=== PATIENT | female | born 1985 | race Caucasian/White ===

== ENCOUNTER 2017-01-04 12:07 | Emergency (ER) | payer OTHER ==
[~2017-01-04] VITALS: Ht 160 cm; Wt 86.2 kg
[~2017-01-04 12:07] MED LIST: AMOXICILLIN 50500 MG PO; AUGMENTIN 875 M1 TAB PO; CLARITIN 10MG T10 MG PO; FLONASE ALLERG9.9 ML NS; HYDROMET PO; MEDROL 4MG. DOSE4 MG PO; TESSALON PERLE100 M1 PO; TRI LINYAH PO; ZITHROMAX Z-PA250 M2 PO
--- OUTSIDE RECORDS SUMMARY | 2017-01-04 12:15 | External Medical Summary Rpt | CCD ---
Demographics Preferred Language Congolese Marital Status Unknown Judaism Affiliation Unknown Race Unknown Ethnic Group Unknown Author Author , CADE MOHAMUD Address Unknown Phone Immunization No patient found.
--- OUTSIDE RECORDS SUMMARY | 2017-01-04 12:15 | External Medical Summary Rpt | CCD ---
Author Author RIKKI Address Unknown Phone Purpose Continuity of Care Document - through 2016
--- OUTSIDE RECORDS SUMMARY | 2017-01-04 12:15 | External Medical Summary Rpt | CCD ---
Demographics Preferred Language Iranian Marital Status Unknown Voodoo Affiliation Unknown Race Unknown Ethnic Group Unknown Author Author , CADE MOHAMUD Address Unknown Phone Immunization No patient found.
--- OUTSIDE RECORDS SUMMARY | 2017-01-04 12:15 | External Medical Summary Rpt ---
Author Author CADE Tristan, CADE [employer] Organization [employer] Address Unknown Phone Unavailable
--- NOTE | 2017-01-04 12:32 | Urgent Treatment Center Report ---
History of Present Issue Date/Time Seen by Provider 01/04/17 1220 Visit Reason Pt arrived:Walked Presenting Problem:COUGH, CONGESTION, EAR ACHE X3 DAYS Location if Accident: Onset of symptoms date/time:/ or onset unknown for:MEDICAL HX UNKNOWN Have you (or family members/close friends) recently traveled outside the [place]? N If Yes, where/when: Have you had exposure to infectious disease within the past month? TB? Other? Specify: c/o cough and chest congestion. Started with sore throat, PND, rhinorrhea but sore throat quickly resolved and "moved into chest". Rhinorrhea, nasal congestion, mykel ear pressure remains but cough and chest congestion is why she is here today. Chest tightness w/ mild SOA at times. Possible wheezing but not sure. Nonsmoker but sat around [facility] all weekend. Hasn't taken or tried anything for symptoms. Denies fever, aches, chills. Not sleeping well due to cough being worse at night. 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 Source patient Exam Limitations no limitations ALLERGIES Coded Allergies: cefaclor (From CECLOR) (08/22/16) clarithromycin (From BIAXIN) (08/22/16) Home Medications Active Scripts Amoxicillin Trihydrate (Amoxicillin 500MG) 500 MG PO TID #30 CAP Prov: 10/06/16 Reported Medications NORGESTIMATE-ETHINYL ESTRADIOL (Tri-Linyah Tablet) 1 TAB PO DAILY #28 Loratadine (Claritin 10MG) 10 MG PO DAILY History Medical History General CAD? No Angina: No DE: No Hypertension? No Hyperlipidemia? No CHF? No DVT? No PE? No COPD? No Asthma? No Anemia? No GERD? No Gastric ulcers? No GI Bleed? No Hernia? No Thyroid Problems? No Hypothyroidism? No CVA? No Seizures? No Diabetes? No Renal Insuffiency? No UTI? No Stones? No GB Disease: No Nephritic Syndrome? No Asplenia? No Hepatitis? No Sickle Cell Disease? No Arthritis? No Migraines? No Cataracts? No Glaucoma? No MRSA? No HIV? No TB? No Anxiety? No Depression? No Cancer? No Immunization HX DT/Tetanus UNKNOWN Surgical Hx Previous Surgery?Y LEFT ELBOW SURGERY Social History Smoking Hx Smoker: Never Smoker Tobacco: No Alcohol Alcohol: No Review of Systems All Other Systems Reviewed and Negative Constitutional see HPI Eyes denies drainage ENT see HPI. denies: ear discharge, throat swelling. Respiratory see HPI Cardiovascular denies chest pain, denies palpitations Gastrointestinal denies no symptoms reported Musculoskeletal denies joint pain Skin denies rash Psychiatric/Neurological denies headache Physical Exam Vital Signs Vital Signs Date Time Temp Pulse Resp B/P Pulse O2 O2 Flow FiO2 Ox Delivery Rate 01/04 1216 97.9 95 18 144/84 99 General Appearance normal appearance, no apparent distress Eye Exam - bilateral eye normal exam Ear, Nose, Throat nasal congestion, thick clear rhinorrhea, clear PND, normal EACs and TMs Neck non-tender, supple Respiratory Status Yes: trachea midline, chest symmetrical, non productive cough. No: respiratory distress, use of accessory muscles, pain on inspiration, pain on expiration. Lung Sounds anterior: lungs clear. posterior: lungs clear. bilateral: lungs clear. Cardiovascular regular rate/rhythm, no peripheral edema, no murmur Neurologic alert, oriented x 3 Mental status normal mood/affect Skin normal color, warm/dry Lymphatic no adenopathy Medical Decision Making LABS/Meds/Orders Pt receiving controlled substance in ED? No Results/Orders Current Medication Orders Sig/Andres Start time Last Medication Dose Route Stop Time Status Admin Methylprednisolone 125 MG ONCE ONE 01/04 1245 AC 01/04 Sodium Succinate IM 01/04 1246 1243 Methylprednisolone 0 .STK-MED ONE 01/04 1242 DC Sodium Succinate .ROUTE Departure Departure Time of Disposition 1237 Disposition DC Home or Self Care(routine) Clinical Impression Primary Impression: Acute bronchitis Qualifiers: Bronchitis organism: unspecified organism Qualified Code: J20.9 - Acute bronchitis, unspecified Secondary Impressions: Upper respiratory virus Condition STABLE Referrals Soham FRANCO,Lorenzo (Family) IMMEDIATELY for new or worsening symptoms OR no noticeable improvement over the next 48-72 hours. 911 for difficulty breathing. Patient Instructions DI for Acute Bronchitis, DI for Viral Upper Respiratory Infection -- Adult Additional Instructions * No sign of bacterial infection. Likely viral. Virus can take 7-14 days to run their course and with bronchitis, the cough is usually the last thing to resolve. * Monitor Temp. Follow up if fevers develop * humidifier/vaporizer/hot steamy shower * Inhaler every 4-6 hours as needed like we discussed. If unsure how to use it, ask pharmacist to demonstrate how. Should help open airways and improve cough, wheezing, shortness of breath. * Mucinex during the day for your cough and cough suppressant only at night. Be sure to drink lots of water. Insurance may not cover a prescription of mucinex. Might be cheaper to get 400mg tablets and take 2 tablets morning, midday and evening all with lots of water. * Promethazine DM cough syrup will cause drowsiness. Use it only at night. No driving, operating machinery or caring for small children after taking it. * Start steroid tomorrow since you were given the injection in clinic. Helps with inflammation therefore, cough and wheezing. Follow directions on package. Rvwd side effects. Pt reports they have taken them before. * Encourage fluids, water, gatorade, powerade, pedialyte if infant/toddler/child * warm salt water gargles * warm fluids * sore throat lozenges * sleep elevated * humidifier/vaporizer * You can try flonase and/or sudafed for head symptoms along with other conservative measures. the steroids will also typically help along with the mucinex and increased water intake. Flonase 2 sprays each nostril daily but may take 2-3 days to notice improvement with it. Discharge Counseling Counseled pt/family regarding diagnosis, medications/RX, home care, follow up needs Prescriptions Current Visit Scripts ALBUTEROL (Proventil Hfa Inhaler) 1-2 PUFF IH Q4-6H PRN PRN SOA, wheezing #1 CAN Prednisone (Prednisone 20MG) 20 MG PO BID #10 TAB PROMETHAZINE/DEXTROMETHORPHAN (Promethazine-Dm Syrup) 10 ML PO QHS PRN cough #120 ML will cause drowsiness at 1250
[2017-01-04] MEDS ORDERED: PROVENTIL0.09 MG/A1 IH (12:43)
[2017-01-04] MEDS ORDERED: PROMETHAZINE D118 ML PO (12:43)
[2017-01-04] MEDS ORDERED: PREDNISONE 20MG20 MG PO (12:43)
[2017-01-04 12:53] VITALS: BP 144/84
== END 2017-01-04 12:57 | disposition home or self-care (01) ==
LOC: UTC 12:07
DX: J20.9 Acute bronchitis, unspecified (principal); Z88.1 Allergy status to other antibiotic agents